=== PATIENT | male | born 1950 | race Native Hawaiian/Other Pacific Islander ===

== ENCOUNTER 2021-02-22 18:36 | Observation (INO) | payer OTHER, MEDICARE, SELFPAY ==
[2021-02-22 19:48] VITALS: BMI 34.3
[2021-02-22 20:00] VITALS: BP 158/76; PULSE 69; RESP 18; TEMP 37.3; O2SAT 97
[2021-02-22 21:22] VITALS: O2SAT 95
--- NOTE | 2021-02-22 21:24 | DI.MRI.S_ITS ---
PROCEDURE: MR STROKE Pre- and post-contrast brain MRI, non-contrast brain MR angiogram, pre- and postcontrast neck MR angiogram INDICATIONS: TIA vs CVA TECHNIQUE: Brain: Noncontrast axial T1 spin echo, axial T2 fast spin echo, sagittal and axial FLAIR, coronal T2 fast spin echo, axial gradient echo, axial diffusion and ADC through the brain. After the administration of contrast, axial 3D VIBE of the cranial vasculature and brain. Brain MRA: Non-contrast 3-D time of flight MR angiogram, with multiple wrqhpda-vedbilnxv-dwoapqtzbw (MIP) reformats performed. Neck MRA: Axial and sagittal TruFISP through the neck. Coronal dynamic MR angiogram during administration of contrast in the arterial and venous phases, with 3-dimenstional kzqfsvd-eubbngkas-iwjkwozmtc (MIP) reformats constructed from subtraction images. COMPARISON: None. FINDINGS: Image quality: Degraded by body habitus and motion artifact. BRAIN: CSF spaces: Ventricles are normal in size and shape. Basal cisterns are patent. No extra-axial fluid collections. Brain: No acute intracranial bleeds or mass effects. There is moderate diffuse cerebral volume loss. There is a mild degree of patchy high FLAIR signal within the periventricular and subcortical white matter. Moderate chronic infarct within the right anterior frontal lobe, which demonstrates a small amount of low curvilinear gradient echo signal intensity. Small chronic infarct within the right occipital lobe. Martines-white matter interface is normal. Diffusion weighted images show no acute ischemic insults. Brainstem appears normal. Normal intravascular flow voids are present. No abnormal intracranial enhancement. Skull and face: Calvarial marrow signal is normal. Orbits appear normal. Sinuses: Sinuses and mastoids are clear. BRAIN MR ANGIOGRAM: Significantly limited examination secondary to motion artifact. Flow is grossly present within the bilateral internal carotid arteries, bilateral middle and anterior cerebral arteries, as well as the bilateral posterior cerebral arteries. Normal flow seen within the right vertebral artery and basilar artery. No flow is seen within the left vertebral artery. NECK MR ANGIOGRAM: Thoracic aortic arch is widely patent with standard branching anatomy. The and nominated artery is patent. Moderate stenosis within the proximal right subclavian artery. Right subclavian artery is otherwise patent. Right vertebral artery demonstrates a high-grade focal stenosis roughly 35 mm distal to its origin which demonstrates evidence of an intimal flap, which could indicate dissection. Right common carotid artery is patent. Right external carotid artery is patent. Right internal carotid artery is patent. Left common carotid artery is patent. Left external carotid artery is patent. Multifocal moderate high-grade stenosis within the proximal left internal carotid artery are present. Left internal carotid artery is otherwise patent. Left subclavian artery is patent. Left vertebral artery is small in caliber, and is grossly patent to mid neck, and is not well seen distally. IMPRESSION: Limited examination secondary to body habitus and motion artifact. BRAIN MRI: 1. No acute process. No recent infarct. 2. Volume loss and small vessel ischemic disease. 3. Chronic right cerebral infarcts. BRAIN MR ANGIOGRAM: Limited examination demonstrating no definite flow within the left distal vertebral artery. NECK MR ANGIOGRAM: 1. No right internal carotid artery stenosis. 2. High-grade left internal carotid artery stenoses. 3. High-grade proximal right vertebral artery stenosis, possibly the result of dissection. 4. Small caliber left vertebral artery which is not well seen distally, which could be the result of dissection versus occlusion versus congenital absence of the vessel, versus small vessel caliber. Findings discussed with Dr. Mancilla on 02/23/2021 at 11:40 hours. Dictated by: Lefty Buenrostro M.D. on 02/23/2021 at 11:27 Approved by: Lefty Buenrostro M.D. on 02/23/2021 at 11:42
--- NOTE | 2021-02-22 21:25 | DI.ECHO.S_ITS ---
[facility] +---------+ : : [address] : [place] : : : : [id number] : : : : Phone: [phone]---------+ Echocardiogram Report + + :Name: CHA GUZMAN Study Date: 02/23/2021 Height: 72 in : :[facility] ReadingLocation: Weight: 253 lb : : Gender: Male BSA: 2.4 m2 : :: 1950 Age: 70 yrs BP: 158/84 mmHg: :Reason For Study: TIA : :Ordering Physician: ARNULFO, : :ALAN Performed By: Erin Wang : :Referring: ALAN ARREDONDO : + + Interpretation Summary The patient was in sinus rhythm with heart rates between 66-71 bpm during the exam. The left ventricle is normal in size. The ejection fraction is estimated to be 55-60%. Hypokinesis of mid to distal inferior lateral as well as mid to distal anterolateral wall. There is no obvious LV thrombus. The right ventricle is at the upper limits of normal in size. The right ventricular systolic function is normal. Left coronary cusp is calcified and has restricted movement. Overall no significant aortic stenosis. Mild atherosclerotic plaque(s) in the aortic arch. The IVC is of normal diameter and collapses greater than 50% with a sniff. This suggests a low right atrial pressure of 3 mm Hg. Procedure: A two-dimensional transthoracic echocardiogram with color flow and Doppler was performed. The study quality was technically difficult. Comparison is made with the echocardiogram of 08/13/2012. The patient was in sinus rhythm with heart rates between 66-71 bpm during the exam. Left Ventricle: Proximal septal thickening is noted. The left ventricle is normal in size. There is no echo evidence for significant left ventricular outflow tract obstruction. There is no thrombus. The ejection fraction is estimated to be 55-60%. Hypokinesis of mid to distal inferior lateral as well as mid to distal anterolateral wall. Diastolic parameters suggest a relaxation abnormality of the left ventricle, consistent with probable normal filling pressures. Right Ventricle: The right ventricle is at the upper limits of normal in size. The right ventricular systolic function is normal. Atria: The left atrium is mildly dilated. Right atrial size is normal. There is no Doppler evidence for an interatrial shunt. Mitral Valve: There is mild mitral annular calcification. The mitral valve leaflets are slightly calcified. There is systolic anterior motion of the chordal apparatus. Redundant elongated chordae are noted. There is trace mitral regurgitation. Aortic Valve: The aortic valve is mildly calcified. Left coronary cusp is calcified and has restricted movement. Overall no significant aortic stenosis. There is no hemodynamically significant valvular aortic stenosis. There is trace aortic regurgitation. Tricuspid Valve: The tricuspid valve is normal in structure and function. There is trace tricuspid regurgitation. Pulmonary artery pressures cannot be estimated because of the lack of a measurable TR jet velocity. Pulmonic Valve: The pulmonic valve is not well seen, but is grossly normal. There is no pulmonic valvular regurgitation. Great Vessels: The aortic root is normal size. The ascending aorta is at the upper limits of normal in size. Mild atherosclerotic plaque(s) in the aortic arch. The IVC is of normal diameter and collapses greater than 50% with a sniff. This suggests a low right atrial pressure of 3 mm Hg. Pericardium/ Pleura There is no pericardial effusion. There is no pleural effusion. MMode/2D Measurements & Calculations LVIDd: 4.6 cm LVOT diam: 2.3 cm LVIDs: 3.1 cm Ao root diam: 3.9 cm FS: 31.8 % asc Aorta Diam: 3.7 cm IVSd: 1.5 cm LVPWd: 1.1 cm LV madera. diameter/BSA (cm/m^2): 2.0 LV sys. diameter/BSA (cm/m^2): 1.3 LA A2 area: 25.9 cm2 RA long axis: 5.6 cm LA A4 area: 21.8 cm2 RA area: 17.6 cm2 LA length (vol): 5.6 cm RA vol: 46.9 ml LA vol: 84.9 ml RA : 19.9 ml/m2 LA vol index: 36.1 ml/m2 IVC diam: 1.3 cm RVD1 (basal): 4.0 cm TAPSE: 2.4 cm Doppler Measurements & Calculations Ao V2 max: 135.9 cm/sec LVOT Max Bhupendra: 124.1 cm/sec Ao V2 mean: 102.0 cm/sec LV V1 max P.2 mmHg Ao max P.4 mmHg LV V1 VTI: 28.3 cm Ao mean P.5 mmHg LEXIE(I,D): 3.8 cm2 Ao V2 VTI: 31.6 cm LEXIE(V,D): 3.8 cm2 sev ratio: 0.90 LEXIE indexed to BSA (cm^2/m^2): 1.6 MV E max bhupendra: 64.0 cm/sec PA V2 max: 92.8 cm/sec MV A max bhupendra: 95.0 cm/sec PA V2 mean: 63.1 cm/sec MV E/A: 0.67 PA mean P.8 mmHg Med Peak E' Bhupendra: 4.8 cm/sec PA pr(Accel): 24.2 mmHg E/E' med: 13.4 Lat Peak E' Bhupendra: 7.2 cm/sec E/E' lat: 8.9 E/e' average: 11.1 MV dec time: 0.30 sec SV(LVOT): 119.0 ml Reading Physician:09:35 AM
--- NOTE | 2021-02-22 21:56 | PM.HP.1 ---
History of Present Illness History of Present Illness Date Patient Seen: 02/22/21 Time Patient Seen: 21:30 Chief complaint: TIA Narrative: Mr. Sherman is a 70M with PMH CVA, trigeminal neuralgia, HTN, right carotid endarterectomy who presented to the hospital for sudden onset word finding difficulties. He states he was watching TV and approximately at 3PM today he was noted to be unable to speak normally. He had slightly slurred speech, and he had notable word finding difficulty. The episode lasted for 10-15 minutes. He did not have any vision changes, no numbness or other sensory changes. No headaches. No weakness. No shortness of breath or chest pain. No nausea, vomiting, diarrhea. He presented initially to [facility]. Labs notable for WBC 4.7, hgb 14.6, plts 13. Na 136, creatinine 1.59 (baseline 1.55 last in 2019), troponin negative. CT head showed no acute process and old infarcts at right frontal and occipital lobes. 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 Stenosis of right cervical vertebral artery, hypoplasia of left vertebral artery. He was transferred for further treatment. Family history: Father - CAD Social history: former smoker, quit years ago. EtOH use daily Patient History Family & Social History Social History: household members spouse Prior Living Arrangements Mobile home Safety & Behavioral: Feels Safe in Current Yes Environment Been Physically Hurt or No Threatened By a Person Suicidal Ideation Description None Suicide Plan Description No Plan Tobacco & Substance use: Smoking Status Former smoker alcohol intake current alcohol intake frequency 3 or more drinks per day Meds Home Medications and Allergies Allergies Allergy/AdvReac Type Severity Reaction Status Date / Time INGREDIENT: NDA - NO KNOWN Allergy Unknown Uncoded 07/04/17 11:59 DRUG ALLERGIES Review of Systems Review of Systems Narrative: 14 systems reviewed and negative aside from what is noted in HPI Exam Narrative Exam Narrative: GEN: no acute distress HEENT: PERRL, moist mucous membranes NECK: trachea midline, no JVD PULM: clear bilaterally, no wheezes, rhonchi, rales CV: regular rate and rhythm, no murmurs ABD: soft, nontender, nondistended, no organomegaly, normal bowel sounds EXT: warm and well perfused, chronic venous stasis changes NEURO: awake, alert, and oriented, speech fluent, no facial droop, cranial nerves 2-12 intact, upper and lower extremities 5/5 strength PSYCH: pleasant, cooperative Assessment & Plan Assessment & Plan narrative: Mr. Sherman is a 70M with PMH CVA, trigeminal neuralgia, HTN, right carotid endarterectomy who presented to sudden onset word finding difficulties and slurred speech 1. Probable TIA with history of R carotid endarterectomy, R chronic stable vertebral artery dissection, R vertebral artery stenosis, L vertebral aretery hypoplasia -he is high risk for having another neurologic event given his intracranial vascular anattomy -had now resolved neurologic dysfunction consistent with TIA vs CVA -CT head and CTA head/neck with no acute process -MRI head ordered, ECHO ordered -lipids, a1c ordered -hold anti-hypertensives to allow permissive hypertension -already on aspirin, for now will add plavix as well -NIH q4 -PT/OT/speech ordered 2. Hypertension -hold anti-hypertensives, except will continue metoprolol for now CODE: DNR Proxy: Eddie Sherman, spouse I have utilized all available resources to reconcile patient's home medications. Time Spent With Patient Critical Care time: I spent a total of [] minutes of critical care time on this patient's care today; this time is exclusive of procedural time. Quality VTE Deep Vein Thrombosis/Pulmonary Embolism Present on Admission: No MIPS - Admit I confirm the patient?s Advance Care Plan is present, Code status is documented, Surrogate decision maker is in patient?s record [If Yes, STOP here]: Yes
[2021-02-22] MEDS: METOPROLOL IR 50 MG TABLET PO (22:01)
[2021-02-22 22:56] LABS: COVID19 - ADMIT (NP swab/PCR) Negative (Negative)
[2021-02-23] VITALS: BP 158/84; PULSE 67; RESP 18; TEMP 37.5; O2SAT 95
[2021-02-23 01:22] VITALS: O2SAT 91
[2021-02-23 05:00] VITALS: BP 144/62; PULSE 80; RESP 18; TEMP 37.5; O2SAT 91; O2SAT 97
[2021-02-23 05:50] LABS: Hematocrit 43.3 % (41-53); Hemoglobin 14.8 g/dL (13.5-17.5); Mean Corpuscular HGB Conc 34.2 % (30-36); Mean Corpuscular Hemoglobin 31.2 PG (26-34); Mean Corpuscular Volume 91.5 fL (80-100); Platelet Count 104 X10^3/uL (150-400); Red Blood Cell Count 4.73 X10^6/uL (4.5-5.9); White Blood Cell Count 3.7 X10^3/uL (4.5-11.0)
[2021-02-23 06:01] LABS: Add Manual Diff / Slide Review YES
[2021-02-23 06:10] LABS: BUN Creatinine Ratio 14.4 (6-22); Blood Urea Nitrogen 18 mg/dL (9-20); Calcium 8.8 mg/dL (8.4-10.2); Carbon Dioxide 28 mmol/L (22-32); Chloride 102 mmol/L (98-107); Cholesterol 190 mg/dL (140-199); Estimated Glomerular Filt Rate 57.3 mL/min (>60); Glucose 94 mg/dL (80-110); HDL Cholesterol 29 mg/dL (40-60); HEMOLYSIS < 15 (0-50); LDL Cholesterol Calculated 129 mg/dL (<100); Potassium 4.2 mmol/L (3.4-5.1); Sodium 134 mmol/L (137-145); Triglycerides 158 mg/dL (35-150)
[2021-02-23 06:16] LABS: Neutrophils Absolute Manual 1813 /uL (3000-5900); Total Cells Counted 100
[2021-02-23] MEDS: ASPIRIN EC 81 MG TABLET PO (08:09)
[2021-02-23] MEDS: CLOPIDOGREL 75 MG TABLET PO (08:09)
[2021-02-23] MEDS: ENOXAPARIN 30 MG/0.3 ML SYRINGE SUBCUT (08:10)
[2021-02-23] MEDS: METOPROLOL IR 50 MG TABLET PO (08:11)
[2021-02-23 08:23] VITALS: O2SAT 96
[2021-02-23 08:30] VITALS: BP 106/55; PULSE 74; RESP 18; TEMP 36.7; O2SAT 99
--- NOTE | 2021-02-23 09:20 | PT.IIE ---
Physical Therapy Inpatient Evaluation/Re-Eval M1 PT/OT-IP Prior Functional Status Start: 02/23/21 11:51 Freq: NEEDED Status: Active Protocol: Document 02/23/21 09:20 AB (Rec: 02/23/21 12:14 AB [email or web address]) Medical Review Prior Functional Status Medical History Reviewed Yes Communication able to make needs known Mobility and Gait pt stated that he is independent with all mobilities and ambulation without AD Social History Household Members spouse Living Arrangements House Number of Floors (Floors) One Floor Number of Stairs To Enter/Railing? 4 platform steps without rails to enter the house Home Environment Standard Height Toilet,Walk in Shower,Built-In Shower Seat Home Equipment Straight Cane M2 PT-IP Current Condition Start: 02/23/21 11:51 Freq: NEEDED Status: Active Protocol: Document 02/23/21 09:20 AB (Rec: 02/23/21 12:14 AB [email or web address]) Physical Therapy Current Condition Current Condition Evaluation Date 02/23/21 Treatment Diagnosis TIA; difficulty in walking Onset Date 02/22/21 M3 PT-IP Subjective Start: 02/23/21 11:51 Freq: NEEDED Status: Active Protocol: Document 02/23/21 09:20 AB (Rec: 02/23/21 12:14 AB [email or web address]) Subjective Physical Therapy Visit Type Type Initial Evaluation Visit Start Time 09:20 Visit Stop Time 10:00 Total Visit Minutes 40 Number of EXTRUSION BENDER Visits 0 Physical Therapy Visit Comments Patient Comments agreed to do PT M4 PT-IP Mobility and Gait Start: 02/23/21 11:51 Freq: NEEDED Status: Active Protocol: Document 02/23/21 09:20 AB (Rec: 02/23/21 12:14 AB [email or web address]) PT-Bed Mobility Assessment Supine to Sit Supine to Sit Maximum Assistance,1 Person Assistance PT-Transfer Assessment Sit to and From Stand Sit to and from Stand Contact Guard Assistance,1 Person Assistance Equipment Transfer Assistive Device None,Gait Belt,Straight Cane Orthotic/Prosthetic Devices or Brace: No Transfers Transfer Destination Chair Transfer Technique ambulated Transfer Ability Level of Assist Standby Assistance,Contact Guard Assistance,Use of Upper Extremities Comments Mobility Comments Pt completed supine to sit max A and max cues. pt stated that he has back problems but does not have any problems getting up from his bed at home. pt was able to sit on EOB SBA. Completed sit to stand CGA and ambulated in room without AD CGA. presents with antalgic shuffling gait with increas forward trunk flexion. pt and spouse stated that gait is at prior level. pt ambulated out in the hallway and completed up/down platform set CGA for ascending and min A for descending with pt taking extra steps forward upon descent due to decrease balance. pt ambulated back to his room. educated pt on balance and LE control. spouse stated that pt has been seeing a interpersonal communications professor for his strength and balance and that pt had h/o CVA ~ 2 years ago. Assessed mobility using SPC. pt able to ambulated ~ 40 ft using SPC SBA and with improve LE elevation and posture. completed up/down platform step using SPC and completed CGA. pt ambulated back to his room using SPC SBA to CGA. rested on EOB. spouse stated that pt has L sided neglect and asked regarding pt holding on SPC on L side to improve L sided neglect. informed spouse that pt does not seem to have much L sided neglect but may be inattentive sometimes when distracted or multi tasking. Pt able to turn head and look at PT on L side without cues provided. informed spouse that pt's LE are equal strength bower and pt is R handed that is why it is easier for pt to use SPC on R hand. also informed spouse that walking takes a lot more balance and coordination and using SPC on L side may be a safety issue during walking since spouse is stating that pt has L sided neglect. informed spouse that pt can do other activities to begin with to encourage L sided attentiveness for now but not risking pt to fall. Pt agreed to use SPC. pt ambulated from bed to chair without AD sBA. positioned pt on chair. call light and table placed within reach. Gait Assessment Gait Gait Assistance Required: Standby Assistance,Contact Guard Assist Distance (Feet) 40 Able to Maintain Weight Bearing Status Yes During Gait Assistive Devices Assistive Device None,Gait Belt,Straight Cane Orthotic/Prosthetic Devices or Brace: Yes Gait Deviations General Gait Pattern Antalgic,Decreased Stride Length,Decreased Feet Clearance,Flexed Trunk,Wide Based Gait Factors Limiting Gait Function Factors Limiting Gait Function Decreased Activity Tolerance, Decreased Strength,Limited Range of Motion,Poor Balance, Poor Safety Awareness Stair Climbing Assessment Evaluation Level of Assist On Stairs Contact Guard Assistance, Minimal Assistance Devices Stair Climbing Assistive Devices None,Straight Cane Technique/Endurance Stair Climbing Direction Ascend and Descend Stair Climbing Technique Step to Step Number of Steps Climbed 1 Query Text: Stair Climbing Set # Repetitions (reps) 4 Comments Stair Climbing Comments pls refer to mobility section for details PT-Balance Assessment Sitting Balance and Reactions Static Sitting Balance Ability Good Dynamic Sitting Balance Ability Good Standing Balance and Reactions Static Standing Balance Ability Fair Dynamic Standing Balance Ability Fair Device Used without AD M5 PT-IP Objective Assessments Start: 02/23/21 11:51 Freq: NEEDED Status: Active Protocol: Document 02/23/21 09:20 AB (Rec: 02/23/21 12:14 AB [email or web address]) Orientation Orientation/Cognition Level of Alertness Alert Orientation Name,Place,Situation Language Function Ability No Deficits Noted Safety Awareness Decreased Safety Awareness Memory Description No Deficits Noted Gross Range of Motion Lower Extremity ROM Assessment Within Functional Limits Strength Lower Extremity Strength Assessment Within Functional Limits Sensation Assessment Sensation Gross Sensation WNL Muscle Tone Muscle Tone WNL Yes M6 PT-IP Treatment Start: 02/23/21 11:51 Freq: NEEDED Status: Active Protocol: Document 02/23/21 09:20 AB (Rec: 02/23/21 12:14 AB [id number]) Physical Therapy Treatment Education Education Provided Safety M7 PT-IP Assessment and Plan Start: 02/23/21 11:51 Freq: NEEDED Status: Active Protocol: Document 02/23/21 09:20 AB (Rec: 02/23/21 12:14 AB [id number]) PT Summary Assessment and Plan Potential Rehabilitation Potential Good Status of Condition at Evaluation Stable Summary Impairments Pain,ROM,Strength,Balance, Coordination,Sensation,Tone, Cognition,Bed Mobility, Transfers,Gait,Activity Tolerance Assessment Summary pt requiring SBA to CGA with mobility and plans to go home with spouse to assist him. pt will benefit from outpt PT. Goals Bed Mobility Goal Independent Transfer Goal Independent Gait Goal Independent Gait Distance 200 Other Goals up/down 4 platform steps without AD SBA Days to Meet Goals 5 Frequency of Treatment Frequency Of Treatment Once a Day Treatment Plan Physical Therapy Treatment Plan Bed Mobility Training,Transfer Training,Gait Training, Therapeutic Exercise,Balance Retraining,Discharge Planning, Hot or Cold Pack,Neuromuscular Re-ed,Coordination Retraining ,Manual Therapy Recommendations To Nursing Amount of Assist Needed 1 Person Assist Discharge Recommendations PT Discharge Recommendations Home with Assistance, Outpatient PT Transportation Needs at Discharge Private Vehicle
--- NOTE | 2021-02-23 10:13 | ST.IPSCREEN ---
saw pt in his room seated in bedside chair. Pt's in the room. Both pt and his report that pt's speech and swallowing are back to normal OME screen with DKS was observed to be WFL. Mild dysarthria noted; pt's indicated that dysarthria was residual from his last stroke. Pt oriented x3, able to describe incident yesterday. Swallow observed to be WFL. No cough observed. No ST indicated at this time.
[2021-02-23] MEDS: LORazepam 2 MG/ML INJ 1 MG IV (10:15)
--- NOTE | 2021-02-23 11:33 | PC.NURSE ---
Day shift: Pt back on AC unit from MRI at approx 1130. He is in bed w/ bed alarm on. Placed back on tele as well. Call light in reach.
[2021-02-23 12:08] VITALS: O2SAT 95
--- NOTE | 2021-02-23 12:20 | PC.NURSE ---
Day shift: Pt has been affected by the IV Ativan given prior to the MRI. Unsteady gait and mild confusion. Unable to get out of chair on his own. Dr Mancilla aware. Pt in chair for lunch. Will reassess Pts ability to ambulate prior to d/c home. Call light in reach.
--- NOTE | 2021-02-23 13:50 | OT.IP.EVAL ---
Occupational Therapy Inpatient Evaluation/Re-Eval M1 PT/OT-IP Prior Functional Status Start: 02/23/21 11:51 Freq: NEEDED Status: Active Protocol: Document 02/23/21 13:51 [facility] (Rec: 02/23/21 14:10 [facility] [id number]) Medical Review Prior Functional Status Medical History Reviewed Yes Communication able to make needs known Mobility and Gait pt stated that he is independent with all mobilities and ambulation without AD Activities of Daily Living and IADL's Pt states able to do all his ADL needs and uses a tile power shear operator at times to assist. Social History Household Members spouse Living Arrangements House Number of Floors (Floors) One Floor Number of Stairs To Enter/Railing? 4 platform steps without rails to enter the house Home Environment Standard Height Toilet,Walk in Shower,Built-In Shower Seat Home Equipment Straight Cane Additional Social History Comment Pt has had prior history of CVA. M2 OT-IP Current Condition Start: 02/23/21 13:51 Freq: Status: Active Protocol: Document 02/23/21 13:51 [facility] (Rec: 02/23/21 14:10 [facility] [id number]) Occupational Therapy Current Condition Current Condition Evaluation Date 02/23/21 Treatment Diagnosis TIA Diagnosis Onset Date 02/22/21 M3 OT- IP Subjective and Pain Start: 02/23/21 13:51 Freq: Status: Active Protocol: Document 02/23/21 13:51 [facility] (Rec: 02/23/21 14:10 [facility] [id number]) OT- Subjective Occupational Therapy Visit Type Type Initial Evaluation Visit Start Time 12:15 Visit Stop Time 13:50 Total Visit Minutes 40 Notes Pt seen for split treatment [id number], and 0401-0617 Occupational Therapy Visit Comments Patient Comments Pt agreed to do OT eval. Patient/Caregiver Goals To go home. OT Pain Assessment Pain When Pain Assessed At Rest Pain Present Pain Present Denied Pain M4 OT- IP ADL's Start: 02/23/21 13:51 Freq: Status: Active Protocol: Document 02/23/21 13:51 [facility] (Rec: 02/23/21 14:10 [facility] [id number]) OT ADO-Swsd-Npvyexq Comments OT Self-Feeding Comments Not at meal time. OT ADL-Grooming General Evaluation Grooming Ability Standby Assistance Areas Needing Assistance Retrieving/Set-up of Grooming Items Comments OT Grooming Comments Pt able to stand at the sink in order to do grooming needs. Assist to open packaging on the toothbrush. OT ADL-Oral Care General Eval Oral Care Ability Independent OT ADL-Dressing Comments OT Dressing Comments Pt states does not wear socks at home. Pt able to pull down his brief to urinate while standing to the toilet. OT ADL-Toileting General Evaluation Toileting Ability Standby Assistance Comments OT Toileting Comments Pt able to stand to urinate with distant SBA. OT ADL-Bathing Comments OT Bathing Comments Not performed. M5 OT- IP IADL's Start: 02/23/21 13:51 Freq: Status: Active Protocol: Document 02/23/21 13:51 [facility] (Rec: 02/23/21 14:10 [facility] [id number]) OT-Instrumental Activities of Daily Living Home Safety Awareness Awareness of Need for Assistance at Home Decreased Awareness Home Safety Comments At this time pt is slow to problem solve and process, would be best for his to assist or provide supervision for all needs. Money Management Money Management Caregiver Provides Assistance Meal Preparation Meal Preparation Caregiver Provides Assist M6 OT- IP Functional Cognition Start: 02/23/21 13:51 Freq: Status: Active Protocol: Document 02/23/21 13:51 [facility] (Rec: 02/23/21 14:10 [facility] [id number]) Cognitive Factors Limiting Selfcare Function Cognitive Ability Level of Alertness Alert Patient Orientation Name,Place,Situation Attention Span Ability Capable of Focused Attention, Capable of Sustained Attention Memory Description Short Term Impaired Cognitive Comments Cognitive Assessment Comments Pt having trouble to read the clock and follow directions for [place] [employer] at this time. Pt however able to follow directions to do grooming and toileting needs. NO sure if pt is at his baseline for cognitive needs as pt states prior has had CVA and that his tells him what to do all the time. OT- Vision and Hearing OT- Hearing Assessment OT- Hearing Assessment Use of Hearing Aids OT- Vision Assessment Vision Assessment Comments Pt has reading glasses but not in the hospital. M7 OT- IP Mobility and Balance Start: 02/23/21 13:51 Freq: Status: Active Protocol: Document 02/23/21 13:51 [facility] (Rec: 02/23/21 14:10 [facility] [id number]) OT- Bed Mobility Assessment Supine to Sit Supine to Sit Assist Moderate Assistance Sit to Supine Sit to Supine Assist Standby Assistance OT-Transfer Assessment Sit to and From Stand Sit to and from Stand Minimal Assistance Transfers Transfer Ability Standby Assistance,Contact Guard Assistance Technique Transfer Destination Bed,Chair Transfer Technique Stand Step Pivot Devices Transfer Assistive Devices None,Gait Belt,Front Wheeled Walker Comments Mobility Comments Pt has difficulty to coordinate his movement to scoot and weight shift in the bed to get to the edge of the bed. Pt heavily pushing down on the FWW to stand and wanting therapist to hold the FWW in place while coming to stand. Once on his feet with FWW SBA, mainly vc to keep the FWW in front of him. THen able to try without the FWW and pt able to walk with close SBA. OT- Gait Assessment Comments Gait Ability Comments At this time would be best for pt to use a device outside on uneven surfaces such as a FWW . Pt states uses a SPC on occasion, not able to assess with pt. OT- Balance Assessment Sitting Balance and Reactions Static Sitting Balance Ability Good Dynamic Sitting Balance Ability Fair Standing Balance and Reactions Static Standing Balance Ability Fair M8 OT- IP Objective Assessments Start: 02/23/21 13:51 Freq: Status: Active Protocol: Document 02/23/21 13:51 [facility] (Rec: 02/23/21 14:10 [facility] [id number]) OT Gross Range of Motion Upper Extremity Range of Motion ROM Impairments grossly WFL. OT Strength Upper Extremity Strength Assessment Left Impaired Comments Strength Comments LUE 4-/5 OT- Coordination Assessment Upper Extremity Finger to Nose Test Left UE Impaired Comments Coordination Comments Pt needing assist to open packaging for items. OT-Muscle Tone Assessment Muscle Tone WNL Yes OT Sensation Assessment Comments Summary Comments Intact for light touch. Decreased proprioception and kinesthesia for left arm. Edema Edema Comments Left LE more swollen than right LE. M9 OT- IP Assessment and Plan Start: 02/23/21 13:51 Freq: Status: Active Protocol: Document 02/23/21 13:51 [facility] (Rec: 02/23/21 14:10 [facility] [id number]) OT Summary Assessment and Plan Potential Rehabilitation Potential Good Analytic Complexity at Evaluation Moderate Summary OT Impairments Strength,Balance,Coordination, Functional Cognition, Functional Mobility,Dressing, Toileting,Bathing,Toilet Transfers,Shower Transfers, Activity Tolerance Progress Towards Goals Slow Progress due to Medical Issues,Slow Progress due to Cognition Assessment Summary Pt MOD complexity with TIA and prior history of CVA. Pt's not present in the room but pt states she is able to assist him as needed. Pending or prior level of function, pt would benefit from outpt therapy. Pt having difficulty with bed mobility, dynamic balance, coordination and problem solving needs. Goals Grooming Goal Independent Dressing Goal Independent Toileting Goal Independent Bathing Goal Independent Toilet Transfer Goal Independent Shower Transfer Goal Independent Days to Meet Goals 10 Frequency of Treatment Frequency Of Treatment Once a Day Treatment Plan OT Treatment Plan ADL Training,Functional Cognition Training,Functional Mobility,Patient/Family Education,Discharge Planning Other Treatment Recommendations and Next shower Treatment Focus Discharge Recommendations OT Discharge Recommendations Home with 24/7 Assist Available,Outpatient PT Transportation Needs at Discharge Private Vehicle
--- NOTE | 2021-02-23 14:36 | CM.IDA ---
Addendum entered by EDUARD Regalado 02/23/21 14:48: ADD: According to RN, spouse agreeable to taking patient home this afternoon, patient remains unsteady on feet JODI Original Note: Discharge Planning/Care Management CM Discharge Assessment Start: 02/23/21 14:28 Freq: Status: Active Protocol: Document 02/23/21 14:28 [facility] (Rec: 02/23/21 14:36 [facility] [id number]) Discharge Planning Assessment Assigned Chemist Physical EDUARD Mazariegos DPOA/Assigned Designee Name Eddie Sherman, spouse Contact Information [phone], cell Advance Directives? No History Provided By Patient,Medical Record Comment Patient admitted observation for stroke r/o. Suspected TIA Prior Living Arrangements House Household Members spouse Type of transporation used prior to Drives own vehicle admit Independent with ADL's Yes Is patient alert and oriented? Yes Barriers to Discharge No Comment Patient received ativan in order to tolerate his MRI and now has some unsteady gait w/ confusion. Dr Mancilla aware and nursing planning to reassess gait before patient returns home w/spouse Therapy team recommending home w/outpatient PT/OT Discharge Plan Home Transportation Arrangement Family Referrals Initiated None needed EDUARD Conteh
--- NOTE | 2021-02-23 15:31 | PC.NURSE ---
Day shift: Paperwork signed and all questions answered. Pt has all personal belongings. scripts sent to Pt's pharmacy. Pt's spouse in room for teachings. Pt OOB and ambualted around [facility] and tolerated well. Pt continues to have no nausea or pain. ALso no chest pain. Taken to car in by MARK Hess. Pt's spouse is driving him home. Left unit at approx 1530.
--- NOTE | 2021-02-25 19:47 | P.DS_ITS ---
History of Present Illness History of Present Illness Date Patient Seen: 02/23/21 Chief complaint: TIA Narrative: Mr. Sherman is a 70M with PMH CVA, trigeminal neuralgia, HTN, right carotid endarterectomy who presented to the hospital for sudden onset word finding difficulties. He states he was watching TV and approximately at 3PM today he was noted to be unable to speak normally. He had slightly slurred speech, and he had notable word finding difficulty. The episode lasted for 10-15 minutes. He did not have any vision changes, no numbness or other sensory changes. No headaches. No weakness. No shortness of breath or chest pain. No nausea, vomiting, diarrhea. He presented initially to [facility]. Labs notable for WBC 4.7, hgb 14.6, plts 13. Na 136, creatinine 1.59 (baseline 1.55 last in 2019), troponin negative. CT head showed no acute process and old infarcts at right frontal and occipital lobes. 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 Stenosis of right cervical vertebral artery, hypoplasia of left vertebral artery. He was transferred for further treatment. Discharge Providers Provider Date of admission: 02/22/21 18:36 Discharge Date: 02/23/21 Consults: 02/22/21 21:24 Consult to Discharge Planning Routine Comment: Consult to Occupational Therapy Evaluate & Treat Comment: Physician Instructions: Evaluate and treat Consult to Physical Therapy Evaluate & Treat Comment: Physician Instructions: Evaluate and Treat Consult to Speech Therapy Evaluate & Treat Comment: Physician Instructions: Evaluate and treat Discharge provider: Nesha Mancilla MD Summary Hospital Course Discharge Diagnosis: 1. TIA 2. Hypertension 3. Trigeminal neuralgia 4. Prior history of stroke Hospital Course: The patient is a 70-year-old male who was admitted to the hospital for probable TIA. Patient had sudden onset of word-finding difficulties. He had slight slurring of his speech. This lasted for 10-15 minutes then resolved. He presen gabino to [facility]. Head CT there was negative. CTA showed no acute findings although postoperative changes of a right CEA, left carotid stenosis, small right vertebral artery dissection unchanged from previously. Patient underwent echocardiogram which revealed an ejection fraction of 50-55%. There was hypokinesis of the mid to distal inferior lateral wall as well as the mid to distal anterior lateral wall. There was no obvious LV thrombus. The right ventricle was at the upper limits of normal. There was normal right ventricular systolic function. Patient had a brain MRI and MRA. Findings are as follows, RAIN MRI:? 1. No acute process.? No recent infarct. 2. Volume loss and small vessel ischemic disease. 3. Chronic right cerebral infarcts.? ? BRAIN MR ANGIOGRAM:? Limited examination demonstrating no definite flow within the left distal vertebral artery. ? NECK MR ANGIOGRAM:? 1. No right internal carotid artery stenosis. 2. High-grade left internal carotid artery stenoses. 3. High-grade proximal right vertebral artery stenosis, possibly the result of dissection. 4. Small caliber left vertebral artery which is not well seen distally, which could be the result of dissection versus occlusion versus congenital absence of the vessel, versus small vessel caliber.? Patient had complete resolution of his symptoms and was deemed appropriate for discharge home. As the patient was previously on 81 mg of aspirin and had a acute ischemic event his aspirin was increased to 325 per day. He will remain on his atorvastatin 80 mg daily in addition to metoprolol 50 p.o. b.i.d. Status at Discharge Cognitive/behavioral status at discharge: oriented Functional status at discharge: independent ambulation Overall status at discharge: patient is progressing back to baseline Exam Vital Signs (past 8 hours): Oxygen Delivery Method Room Air Oxygen Flow Rate 0 Narrative Exam Narrative: Pleasant male in no acute distress Resp Other: Lungs clear to auscultation Cardio Other: Cardiac exam: Regular rate and rhythm normal S1-S2 GI Other: Abdomen soft and nontender Objective Labs Result Diagrams: 02/23/21 05:22 02/23/21 05:22 [facility] Social History household members: spouse Smoking Status: Former smoker alcohol intake: current Discharge Assessment & Plan Assessment and Plan Assessment: 1. TIA 2. Hyper lipid 3. Hypertension Plan of Treatment: Discharge home Increase aspirin to 325 daily Discharge Plan Discharge Plan Patient Disposition: Home Discharge orders & Medications Prescriptions: New atorvastatin [Lipitor] 20 mg Tablet 80 mg PO BEDTIME Qty: 30 0RF metoprolol tartrate 50 mg Tablet 50 mg PO BID Qty: 30 0RF aspirin 325 mg tablet 325 mg PO DAILY Qty: 30 0RF Discharge Health Status Multidrug resistant organism: No MDRO Diet/Activity/Treatments Diet: Low-sodium and Low-cholesterol Activity: as tolerated Visit Report/Discharge Packet Instructions: Transient Ischemic Attack, Echocardiogram, DI for Transient Ischemic Attack, How to Prevent Falls Discharge Data Attending Provider: Nesha Mancilla VTE Deep Vein Thrombosis/Pulmonary Embolism Present on Admission: No
== END 2021-02-23 15:34 | disposition home or self-care (01) ==
PROVIDERS: Internal Medicine; Admitting Provider Internal Medicine; Referring Provider Internal Medicine; Visit Provider Internal Medicine
DX: R47.1 Dysarthria and anarthria (principal); G50.0 Trigeminal neuralgia; Z86.73 Personal history of transient ischemic attack (TIA), and cerebral infarction without residual deficits; I10 Essential (primary) hypertension; Z20.822 Contact with and (suspected) exposure to COVID-19
CPT/HCPCS: 36415; 70548; 70553; 80048; 80061; 83036; 85007; 85025; 87635; 93005; 93306; 96372; 96374; 96375; 97116; 97161; 97166; C9803; G0378; G0379; J1650; J2060

== ENCOUNTER 2021-10-16 13:48 | Observation (INO) | payer MEDICARE, OTHER, SELFPAY ==
[2021-10-16] VITALS (15 sets, daily range): BP systolic 96–177; BP diastolic 51–81; PULSE 57–70; RESP 12–24; TEMP 36.3–37.1; O2SAT 97–100; BMI 33.6
--- NOTE | 2021-10-16 13:56 | DI.CT.S_ITS ---
PROCEDURE: CT STROKE INDICATIONS: left visual change and severe confusion TECHNIQUE: Noncontrast 4.5 mm thick angled axial sections acquired from the foramen magnum to the vertex, with coronal reformats. For radiation dose reduction, the following was used: automated exposure control, adjustment of mA and/or kV according to patient size. COMPARISON: [facility], MR, STROKE PROTOCOL (PNL), 08/12/2012, 14:40. [facility], MR, MR STROKE, 02/23/2021, 10:25. [facility], CT, CT HEAD WITHOUT CONTRAST, 09/09/2021, 13:31. FINDINGS: Image quality: Excellent. CSF spaces: Basal cisterns are patent. No extra-axial fluid collections. The ventricles are symmetric in size and shape. Brain: No intracranial bleeds or masses. There is cerebral volume loss for age, with resultant ventricular and sulcal prominence. There are periventricular and deep white matter chronic small vessel ischemic changes. Remote areas of infarction can be seen on the right, particularly involving the anterior superior right frontal lobe. Potential minimal low-density can be seen involving the right occipital lobe compared left. There is intracranial internal carotid artery atherosclerosis. Skull and face: Right posterior fossa craniotomy changes are seen laterally. Calvarium and visualized facial bones appear intact, without suspicious lesions. Sinuses: Visualized sinuses and mastoids are clear. IMPRESSION: No acute intracranial hemorrhage is seen. Age remote right-sided infarctions are seen, with the most prominent seen involving the anterior superior right lobe. Potential minimal asymmetric low density involving the right occipital lobe, which may simply be artifactual. Craniotomy changes are seen involving the posterior fossa on the right laterally. Note: Case discussed by telephone with Dr. Simeon at 1:09 p.m. [place] time on October 16, 2021. This study fulfills neurological imaging criteria for inclusion or exclusion of acute stroke therapies based on available published neurological guidelines. Dictated by: Karl Ford M.D. on 10/16/2021 at 13:07 Approved by: Karl Ford M.D. on 10/16/2021 at 13:10
--- NOTE | 2021-10-16 13:56 | DI.CT.S_ITS ---
PROCEDURE: CT ANGIO HEAD AND NECK INDICATIONS: left visula change and severe confuison TECHNIQUE: After the administration of intravenous contrast, 1 mm thick sections acquired from the aortic arch through the [place] of [place]. Post-contrast 4.5 mm thick sections then re-acquired from the foramen magnum to the vertex. 3-dimensional sulogzu-bfdioyskh-emsltsoemo (MIP) and/or volume rendering reformats were acquired of the central intracranial vasculature and neck separately. For radiation dose reduction, the following was used: automated exposure control, adjustment of mA and/or kV according to patient size. COMPARISON: [facility], MR, MR STROKE, 02/23/2021, 10:25. [facility], CT, CT HEAD WITHOUT CONTRAST, 09/09/2021, 13:31. FINDINGS: Image quality: Excellent. BRAIN: CSF spaces: Ventricles are normal in size and shape. Basal cisterns are patent. No extra-axial fluid collections. Brain: No midline shift. No intracranial bleeds or masses. Martines-white matter interface appears intact. There are several areas of volume loss and martines-white matter differentiation loss in the right frontal, right parietal, trace right occipital region superimposed on mild patchy white matter hypodensity. No abnormal enhancing mass. Skull and face: Postsurgical changes along the right posterior fossa. No acute fractures or suspicious bone lesions. Sinuses: Sinuses and mastoids are clear. HEAD CT ANGIOGRAPHY: Anterior circulation: Intracranial internal carotid arteries are normal in size and flow. The flow within the paired anterior cerebral arteries is normal and symmetric. The flow within the middle cerebral arteries is normal and symmetric. The anterior communicating artery is seen. No aneurysms are seen. Posterior circulation: Left vertebral artery is quite diminutive and not completely seen as it enters the foramen magnum. The right vertebral artery forms the basilar artery. Flow within the posterior cerebral arteries is normal and symmetric. No aneurysms are seen. NECK CT ANGIOGRAPHY: Carotid system: The great vessels demonstrate a conventional anatomy as they arise from the aortic arch. The origins of the common carotid arteries appear patent. The common carotid arteries demonstrate normal caliber and courses. Calcified focal stenosis of the proximal left internal carotid artery. The extent is similar compared to prior MRI. Additionally, there is very short segment focal narrowing estimated to be about 50%. The internal carotid arteries demonstrate normal calibers and courses. Posterior circulation: Left vertebral artery is quite diminutive. The origin appears patent. There is irregularity in the proximal right vertebral artery lumen, potentially atherosclerotic versus dissection. The distal right vertebral artery appears normal. There is multifocal calcification within the intracranial portion. Soft tissues: Visualized neck soft tissues demonstrate no suspicious abnormalities. Bones: No suspicious bony lesions. Visualized cervical spine appears normally aligned. IMPRESSION: 1. No acute intracranial arterial occlusions or aneurysms. 2. Intraluminal irregularity at the proximal right vertebral artery in the neck, similar compared to prior MR angiogram. Atherosclerotic plaque versus short segment dissection. 3. Extremely diminutive left vertebral artery, probably congenital. 4. 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 5. No acute changes in the brain. Any quantitative measurements of stenosis were performed using NASCET criteria. Dictated by: Samantha Zepeda M.D. on 10/16/2021 at 14:35 Approved by: Samantha Zepeda M.D. on 10/16/2021 at 14:57
--- NOTE | 2021-10-16 14:02 | ED.NEUROSD ---
HPI - Neuro Symptoms/Deficit General Chief Complaint: Altered Mental Status Stated Complaint: Possible Stroke Time Seen by Provider: 10/16/21 13:56 History of Present Illness HPI Narrative: Patient is a 70-year-old male with history of CVA,R carotid endarterectomy, R chronic stable vertebral artery dissection, R vertebral artery stenosis, L vertebral aretery hypoplasia, presenting today with visual deficits and increased confusion. He previously did have stroke. His states that he has had a couple. She thinks the last 1 was September 09 she thinks it went test [place]. She says today his last known well was 115 she was talking to him and noticed he had confusion and was having trouble seeing and grabbing things. He currently has left-sided facial droop and has some left visual defects. Related Data Previous Rx's Medication Instructions Recorded aspirin 325 mg tablet 325 mg PO DAILY #30 tabs 02/23/21 atorvastatin 20 mg tablet (Lipitor) 80 mg PO BEDTIME #30 tabs 02/23/21 metoprolol tartrate 50 mg tablet 50 mg PO BID #30 tabs 02/23/21 Allergies Allergy/AdvReac Type Severity Reaction Status Date / Time No Known Drug Allergies Allergy Verified 10/16/21 14:04 Review of Systems Review of Systems Narrative: GENERAL: Denies chills, fatigue, malaise, fever, sweats, travel HEENT: Denies sinus pain, ear pain, sore throat, difficulty swallowing, neck pain RESPIRATORY: Denies dyspnea, cough, wheezing, hemoptysis, sputum. CARDIOVASCULAR: Denies chest pain, palpitations, orthopnea, edema GASTROINTESTINAL: Denies nausea, vomiting, abdominal pain, diarrhea, constipation, melena. : Denies dysuria, frequency, incontinence, hematuria, urinary retention, flank pain. MUSCULOSKELETAL: Denies weakness, joint pain, or bony pain SKIN: No rash, no erythema, no pruritus NEUROLOGIC: See HPI PSYCHIATRIC: No concerning psychosocial issues. 12 point review of systems is negative except for those stated above and HPI Patient History Social History household members: spouse Smoking Status: Former smoker alcohol intake: current Smoking Status: Former smoker alcohol intake frequency: 3 or more drinks per day Exam Initial Vital Signs Initial Vital Signs: Vital Signs Temperature 98.8 F 10/16/21 13:48 Pulse Rate 65 10/16/21 13:48 Respiratory Rate 18 10/16/21 13:48 Blood Pressure 96/51 L 10/16/21 13:48 Pulse Oximetry 98 10/16/21 13:48 Oxygen Delivery Method 10/16/21 13:48 GENERAL: Alert pleasant 70-year-old male seems mildly confused HEENT: Head atraumatic,EOMI, pupils reactive, left-sided facial droop, moist mucous membranes CARDIOVASCULAR: Regular rate and rhythm without murmurs, rubs or gallops. RESPIRATORY: Breath sounds equal bilaterally, no wheezes rales or rhonchi. ABDOMEN: Soft, nontender. Normoactive bowel sounds all 4 quadrants. No guarding or rebound. : No CVA tenderness EXTREMITIES: Normal range of motion, no clubbing or edema. Neurovascularly intact NEUROLOGICAL: Alert and oriented x3.Normal gait and speech. Cranial nerves II through XII grossly intact. Good kwtviv-[id number], good wdvv-[id number], strength equal bilaterally, no dysarthria or aphasia, sensation in tact to soft touch bilaterally, cleared left complete hemianopsia, last facial droop SKIN: Warm, dry, no laceration, no petechiae, no rashes or lesions. Scores NIH Stroke Scale Level of Conciousness: Alert, keenly responsive Ask month/age: Answers both questions correctly. Open/close eyes, close hand: Performs both tasks correctly Best gaze horizontal: Normal Visual arana: Complete hemianopia Facial palsy: Partial paralysis, total or near total paralysis of lower face Left arm drift: No drift for full 10 sec Right arm drift: No drift for full 10 sec Left leg drift: No drift for full 5 sec Right leg drift: No drift for full 5 sec Limb ataxia: Absent Sensory on face/arms/legs: Normal, no sensory loss Best language: No aphasia, normal Dysarthria: Normal Extinction or inattention: No abnormality Total NIH Stroke scale score: 4 Course Orders Ordered: ED Orders 10/16/21 13:[address] angio head and neck Stat Complete Blood Count AUTO DIFF Stat Comprehensive Metabolic Panel Stat Partial Thromboplastin Time Stat Prothrombin Time INR Stat Troponin & CK Cardiac Panel Stat 10/16/21 13:58 EKG-12 Lead Stat 10/16/21 15:21 Urine Drug Screen, Rapid Stat 10/16/21 15:35 Urinalysis and Microscopic Stat 10/16/21 15:37 COVID19 -Nasal RAPID/Pre-Proc Stat 10/16/21 17:18 MR head/brain wo con Stat Clopidogrel Bisulfate (Clopidogrel 75 Mg Tablet) 75 mg PO DAILY JESSICA Sodium Chloride (Normal Saline 0.9%) 1,000 mls @ 150 mls/hr IV CONT JESSICA Last Infusion: 10/16/21 16:48 Dose: 0 mls/hr Documented By: Admin: 10/16/21 15:00 Dose: 150 mls/hr Documented By: MIKE Discontinued Medications Aspirin (Aspirin 81 Mg Chew Tab) 324 mg PO NOW ONE Stop: 10/16/21 16:00 Last Admin: 10/16/21 16:21 Dose: 324 mg Documented By: MIKE Clopidogrel Bisulfate (Clopidogrel 75 Mg Tablet) 300 mg PO NOW ONE Stop: 10/16/21 16:31 Last Admin: 10/16/21 16:39 Dose: 300 mg Documented By: ROSA Vital Signs Vital signs: Vital Signs - 8 hr 10/16/21 13:48 10/16/21 14:30 10/16/21 14:45 Temperature 98.8 F Pulse Rate 65 62 61 Respiratory Rate 18 24 19 Blood Pressure 96/51 L 131/60 Pulse Oximetry 98 97 99 Oxygen Delivery Method Room Air Room Air 10/16/21 15:00 10/16/21 15:15 10/16/21 15:30 Temperature Pulse Rate 59 L 57 L 57 L Respiratory Rate 14 20 20 Blood Pressure 147/68 H 134/65 141/63 H Pulse Oximetry 98 99 99 Oxygen Delivery Method 10/16/21 15:45 10/16/21 15:53 10/16/21 16:00 Temperature Pulse Rate 60 60 60 Respiratory Rate 22 16 21 Blood Pressure 177/81 H Pulse Oximetry 100 100 99 Oxygen Delivery Method MDM - Neuro Symptoms/Deficit Lab Data Result diagrams: 10/16/21 13:56 10/16/21 13:56 Labs: Lab Results 10/16/21 10/16/21 10/16/21 Range/Units 13:56 13:56 13:56 WBC 6.6 (4.5-11.0) X10^3/uL RBC 4.20 L (4.5-5.9) X10^6/uL Hgb 13.1 L (13.5-17.5) g/dL Hct 38.3 L (41-53) % MCV 91.2 (80-100) fL MCH 31.2 (26-34) PG MCHC 34.2 (30-36) % RDW 14.7 (11.6-14.8) % Plt Count 138 L (150-400) X10^3/uL Neut % (Auto) 61.0 (50-75) % Lymph % (Auto) 23.3 L (25-40) % [place] % (Auto) 9.5 (3-14) % Eos % (Auto) 5.0 H (2-4) % Baso % (Auto) 1.2 (0-2) % Neut # (Auto) 4000 (5419-8834) /uL Lymph # (Auto) 1500 (0718-8325) /uL [place] # (Auto) 600 (0-900) /uL Eos # (Auto) 300 (0-450) /uL Baso # (Auto) 100 (0-100) /uL PT 13.3 H (10.1-12.7) SECONDS INR 1.2 (0.9-1.3) APTT 28 (26.4-36.2) SECONDS Sodium 136 L (137-145) mmol/L Potassium 4.4 (3.4-5.1) mmol/L Chloride 103 (98-107) mmol/L Carbon Dioxide 28 (22-32) mmol/L BUN 15 (9-20) mg/dL Creatinine 1.20 (0.66-1.25) mg/dL Estimated GFR > 60 (>60) mL/min BUN/Creatinine Ratio 12.5 (6-22) Glucose 99 (80-110) mg/dL Calcium 8.8 (8.4-10.2) mg/dL Total Bilirubin 0.8 (0.2-1.3) mg/dL AST 23 (17-59) IU/L ALT 13 (<50) IU/L Alkaline Phosphatase 73 (38-126) U/L Total Creatine Kinase 50 L (55-170) U/L CK-MB (CK-2) TNP CK-MB (CK-2) Rel Index TNP Troponin I < 0.012 (0.01-0.034) ng/mL Total Protein 6.8 (6.3-8.2) g/dL Albumin 3.8 (3.5-5.0) g/dL Globulin 3.0 (1.7-4.1) g/dL Albumin/Globulin Ratio 1.3 (1.0-2.8) Urine Color Urine Appearance Urine pH (4.5-8.0) Ur Specific [place] (1.000-1.035) Urine Protein (Negative) Urine Glucose (UA) (Negative) g/dL Urine Ketones (NEGATIVE) Urine Occult Blood (Negative) Urine Nitrate (Negative) Urine Bilirubin (NEGATIVE) Urine Urobilinogen (0.2) E.U./dL Ur Leukocyte Esterase (NEGATIVE) Urine RBC (0-5/HPF) Urine WBC (0-5/HPF) Urine Bacteria (None) Ur Culture Indicated? U Opiates 300ng/mL cut (Negative) Ur Oxycodone Screen (Negative) Urine Methadone Screen (Negative) Ur Barbiturates Screen (Negative) U Tricyclic Antidepress (Negative) Ur Phencyclidine Scrn (Negative) Ur Amphetamines Screen (Negative) U Methamphetamines Scrn (Negative) Ur MDMA Scrn (Ecstasy) (Negative) U Benzodiazepines Scrn (Negative) Urine Cocaine Screen (Negative) U Marijuana (THC) Screen (Negative) SARS-CoV-2 (PCR) (Negative) 10/16/21 10/16/21 10/16/21 Range/Units 15:21 15:35 15:37 WBC (4.5-11.0) X10^3/uL RBC (4.5-5.9) X10^6/uL Hgb (13.5-17.5) g/dL Hct (41-53) % MCV (80-100) fL MCH (26-34) PG MCHC (30-36) % RDW (11.6-14.8) % Plt Count (150-400) X10^3/uL Neut % (Auto) (50-75) % Lymph % (Auto) (25-40) % [place] % (Auto) (3-14) % Eos % (Auto) (2-4) % Baso % (Auto) (0-2) % Neut # (Auto) (4142-9096) /uL Lymph # (Auto) (7224-4560) /uL [place] # (Auto) (0-900) /uL Eos # (Auto) (0-450) /uL Baso # (Auto) (0-100) /uL PT (10.1-12.7) SECONDS INR (0.9-1.3) APTT (26.4-36.2) SECONDS Sodium (137-145) mmol/L Potassium (3.4-5.1) mmol/L Chloride (98-107) mmol/L Carbon Dioxide (22-32) mmol/L BUN (9-20) mg/dL Creatinine (0.66-1.25) mg/dL Estimated GFR (>60) mL/min BUN/Creatinine Ratio (6-22) Glucose (80-110) mg/dL Calcium (8.4-10.2) mg/dL Total Bilirubin (0.2-1.3) mg/dL AST (17-59) IU/L ALT (<50) IU/L Alkaline Phosphatase (38-126) U/L Total Creatine Kinase (55-170) U/L CK-MB (CK-2) CK-MB (CK-2) Rel Index Troponin I (0.01-0.034) ng/mL Total Protein (6.3-8.2) g/dL Albumin (3.5-5.0) g/dL Globulin (1.7-4.1) g/dL Albumin/Globulin Ratio (1.0-2.8) Urine Color Yellow Urine Appearance Clear Urine pH 6.5 (4.5-8.0) Ur Specific [place] <=1.005 (1.000-1.035) Urine Protein Negative (Negative) Urine Glucose (UA) Negative (Negative) g/dL Urine Ketones Negative (NEGATIVE) Urine Occult Blood Negative (Negative) Urine Nitrate Negative (Negative) Urine Bilirubin Negative (NEGATIVE) Urine Urobilinogen 0.2 (0.2) E.U./dL Ur Leukocyte Esterase Negative (NEGATIVE) Urine RBC None seen (0-5/HPF) Urine WBC None seen (0-5/HPF) Urine Bacteria None seen (None) Ur Culture Indicated? Cult not indicated U Opiates 300ng/mL cut Negative (Negative) Ur Oxycodone Screen Negative (Negative) Urine Methadone Screen Negative (Negative) Ur Barbiturates Screen Negative (Negative) U Tricyclic Antidepress Negative (Negative) Ur Phencyclidine Scrn Negative (Negative) Ur Amphetamines Screen Negative (Negative) U Methamphetamines Scrn Negative (Negative) Ur MDMA Scrn (Ecstasy) Negative (Negative) U Benzodiazepines Scrn Negative (Negative) Urine Cocaine Screen Negative (Negative) U Marijuana (THC) Screen Negative (Negative) SARS-CoV-2 (PCR) Negative (Negative) Point of Care Testing Glucose POC [address] scan - head: Radiologist's Impression: CT Scan Report Signed Patient: Brock Sherman MR#: [id number] : 1950 Acct:[id number] Age/Sex: 70 / M Date of Service: 10/16/21 Loc: ED Accession Number: [id number] ?? Procedure: CT Stroke Ordering Provider: Becki Simeon D.O. PROCEDURE:? CT STROKE ? INDICATIONS:? left visual change and severe confusion ? TECHNIQUE:? Noncontrast 4.5 mm thick angled axial sections acquired from the foramen magnum to the vertex, with coronal reformats.? For radiation dose reduction, the following was used:? automated exposure control, adjustment of mA and/or kV according to patient size.? ? COMPARISON:? [facility], MR, STROKE PROTOCOL (PNL), 08/12/2012, 14:40.? [facility], MR, MR STROKE, 02/23/2021, 10:25.? [facility], CT, CT HEAD WITHOUT CONTRAST, 09/09/2021, 13:31. ? FINDINGS:? Image quality:? Excellent.? ? CSF spaces:? Basal cisterns are patent.? No extra-axial fluid collections.? The ventricles are symmetric in size and shape.? ? Brain:? No intracranial bleeds or masses.? There is cerebral volume loss for age, with resultant ventricular and sulcal prominence.? There are periventricular and deep white matter chronic small vessel ischemic changes.? Remote areas of infarction can be seen on the right, particularly involving the anterior superior right frontal lobe.? Potential minimal low-density can be seen involving the right occipital lobe compared left.? There is intracranial internal carotid artery atherosclerosis.? ? Skull and face:? Right posterior fossa craniotomy changes are seen laterally.? Calvarium and visualized facial bones appear intact, without suspicious lesions.? ? Sinuses:? Visualized sinuses and mastoids are clear.? ? ? IMPRESSION:? No acute intracranial hemorrhage is seen.? ? Age remote right-sided infarctions are seen, with the most prominent seen involving the anterior superior right lobe. ? Potential minimal asymmetric low density involving the right occipital lobe, which may simply be artifactual. ? Craniotomy changes are seen involving the posterior fossa on the right laterally. ? Note: Case discussed by telephone with Dr. Simeon at 1:09 p.m. [place] time on October 16, 2021.? ? This study fulfills neurological imaging criteria for inclusion or exclusion of acute stroke therapies based on available published neurological guidelines.? ? ? Dictated by: Karl Ford M.D. on 10/16/2021 at 13:07 ? ? CTA - brain/neck: Radiologist's Impression: Signed Patient: Brock Sherman MR#: [id number] : 1950 Acct:[id number] Age/Sex: 70 / M Date of Service: 10/16/21 Loc: ED Accession Number: [id number] ?? Procedure: CT angio head and neck Ordering Provider: Becki Simeon D.O. PROCEDURE:? CT ANGIO HEAD AND NECK ? INDICATIONS:? left visula change and severe confuison ? TECHNIQUE:? After the administration of intravenous contrast, 1 mm thick sections acquired from the aortic arch through the [place] of [place].? Post-contrast 4.5 mm thick sections then re-acquired from the foramen magnum to the vertex.? 3-dimensional glmdlkc-spnbeiaev-ygiucmkgzv (MIP) and/or volume rendering reformats were acquired of the central intracranial vasculature and neck separately. For radiation dose reduction, the following was used:? automated exposure control, adjustment of mA and/or kV according to patient size.? ? COMPARISON:? [facility], MR, MR STROKE, 02/23/2021, 10:25.? [facility], CT, CT HEAD WITHOUT CONTRAST, 09/09/2021, 13:31. ? FINDINGS:? Image quality:? Excellent.? ? BRAIN:? CSF spaces:? Ventricles are normal in size and shape.? Basal cisterns are patent.? No extra-axial fluid collections.? ? Brain:? No midline shift.? No intracranial bleeds or masses.? Martines-white matter interface appears intact.? There are several areas of volume loss and martines-white matter differentiation loss in the right frontal, right parietal, trace right occipital region superimposed on mild patchy white matter hypodensity.? No abnormal enhancing mass. ? Skull and face:? Postsurgical changes along the right posterior fossa.? No acute fractures or suspicious bone lesions. ? Sinuses:? Sinuses and mastoids are clear.? ? HEAD CT ANGIOGRAPHY:? Anterior circulation:? Intracranial internal carotid arteries are normal in size and flow.? The flow within the paired anterior cerebral arteries is normal and symmetric.? The flow within the middle cerebral arteries is normal and symmetric.? The anterior communicating artery is seen.? No aneurysms are seen.? ? Posterior circulation:? Left vertebral artery is quite diminutive and not completely seen as it enters the foramen magnum.? The right vertebral artery forms the basilar artery.? Flow within the posterior cerebral arteries is normal and symmetric.? No aneurysms are seen.? ? NECK CT ANGIOGRAPHY:? Carotid system:? The great vessels demonstrate a conventional anatomy as they arise from the aortic arch.? The origins of the common carotid arteries appear patent.? The common carotid arteries demonstrate normal caliber and courses.? Calcified focal stenosis of the proximal left internal carotid artery.? The extent is similar compared to prior MRI.? Additionally, there is very short segment focal narrowing estimated to be about 50%.? The internal carotid arteries demonstrate normal calibers and courses.? ? Posterior circulation:? Left vertebral artery is quite diminutive.? The origin appears patent.? There is irregularity in the proximal right vertebral artery lumen, potentially atherosclerotic versus dissection.? The distal right vertebral artery appears normal.? There is multifocal calcification within the intracranial portion. ? Soft tissues:? Visualized neck soft tissues demonstrate no suspicious abnormalities.? ? Bones:? No suspicious bony lesions.? Visualized cervical spine appears normally aligned.? IMPRESSION:? ? 1. No acute intracranial arterial occlusions or aneurysms. ? 2. Intraluminal irregularity at the proximal right vertebral artery in the neck, similar compared to prior MR angiogram.? Atherosclerotic plaque versus short segment dissection. ? 3. Extremely diminutive left vertebral artery, probably congenital. ? 4. 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 ? 5. No acute changes in the brain. ? Any quantitative measurements of stenosis were performed using NASCET criteria.? ? ? Dictated by: Samantha Zepeda M.D. on 10/16/2021 at 14:35 ? ? ECG Data Interpretation: Normal sinus rhythm rate 62 IA interval 192 QRS [address] changes no T-wave inversions MDM Narrative Medical decision making narrative: Patient presents has code stroke he has last known well 115 within range of tPA. He has obvious left complete hemianopsia. Unable to read left side of the NIH stroke cards. 14:15 Dr. Hook was immediately contacted the stroke neurologist. She did evaluate patient via [employer]. She states difficult to tell but hesitant to give tPA. Patient's symptoms also started resolving. She thinks after reviewing MRI from January symptoms are related to an old stroke which got exacerbated by a low-flow and hyper provision stay with chronic stenosis. Recommended monitoring an MRI. Patient appears that he was discharged in January on aspirin 325 mg however patient is not compliant. states that he is not taking aspirin she showed me all of his antihypertensive medications. Patient is not a fall risk. The patient admitted to Dr. Mcdermott MRI pending. Discharge Plan Departure Patient Disposition: Admitted as Observation Clinical Impression: CVA (cerebral vascular accident) Admit Date/Time: 10/16/21 16:00 Admit Provider: Darrick Mcdermott
[2021-10-16 14:07] LABS: Add Manual Diff / Slide Review NO; Basophils Absolute Auto 100 /uL (0-100); Basophils Percent Auto 1.2 % (0-2); Eosinophils Absolute Auto 300 /uL (0-450); Hematocrit 38.3 % (41-53); Hemoglobin 13.1 g/dL (13.5-17.5); Lymphocytes Absolute Auto 1500 /uL (1100-4500); Lymphocytes Percent Auto 23.3 % (25-40); Mean Corpuscular HGB Conc 34.2 % (30-36); Mean Corpuscular Hemoglobin 31.2 PG (26-34); Mean Corpuscular Volume 91.2 fL (80-100); Monocytes Absolute Auto 600 /uL (0-900); Monocytes Percent Auto 9.5 % (3-14); Neutrophils Absolute Auto 4000 /uL (1500-7000); Platelet Count 138 X10^3/uL (150-400); Red Cell Distribution Width 14.7 % (11.6-14.8); White Blood Cell Count 6.6 X10^3/uL (4.5-11.0)
[2021-10-16 14:12] LABS: INR 1.2 (0.9-1.3); Prothrombin Time 13.3 SECONDS (10.1-12.7)
[2021-10-16 14:15] LABS: PTT Partial Thromboplastin Tim 28 SECONDS (26.4-36.2)
[2021-10-16 14:18] LABS: Alanine Aminotransferase 13 IU/L (<50); Albumin 3.8 g/dL (3.5-5.0); Albumin Globulin Ratio 1.3 (1.0-2.8); Alkaline Phosphatase 73 U/L (38-126); Aspartate Aminotransferase 23 IU/L (17-59); BUN Creatinine Ratio 12.5 (6-22); Bilirubin Total 0.8 mg/dL (0.2-1.3); Blood Urea Nitrogen 15 mg/dL (9-20); Calcium 8.8 mg/dL (8.4-10.2); Carbon Dioxide 28 mmol/L (22-32); Chloride 103 mmol/L (98-107); Creatine Kinase 50 U/L (55-170); Estimated Glomerular Filt Rate > 60 mL/min (>60); Glucose 99 mg/dL (80-110); HEMOLYSIS < 15 (0-50); Potassium 4.4 mmol/L (3.4-5.1); Sodium 136 mmol/L (137-145); Total Protein 6.8 g/dL (6.3-8.2)
[2021-10-16 14:28] LABS: Troponin I < 0.012 ng/mL (0.01-0.034)
[2021-10-16] MEDS: SODIUM CHLORIDE 0.9% 1,000 ML 150 ML IV ×2 (15:00→17:39)
[2021-10-16 15:34] LABS: UR Morphine/Opiate cutoff 300 Negative (Negative); Ur Creatinine NEG (Normal); Ur Specific Gravity 1.025 (Normal); Urine Amphetamines Negative (Negative); Urine Barbiturates Negative (Negative); Urine Benzodiazepines Negative (Negative); Urine Cocaine Negative (Negative); Urine MDMA Negative (Negative); Urine Methadone Negative (Negative); Urine Methamphetamines Negative (Negative); Urine Oxycodone Negative (Negative); Urine Phencyclidine Negative (Negative); Urine Tetrahydrocannabinol Negative (Negative); Urine Tricyclic Antidepressant Negative (Negative); Urine pH 5 (Normal)
[2021-10-16 15:43] LABS: Appearance Urine UA CLEAR; Bilirubin Urine UA NEGATIVE (NEGATIVE); Color Urine UA YELLOW; Glucose Urine UA NEGATIVE (Negative); Ketones Urine UA NEGATIVE (NEGATIVE); Leukocyte Esterase Urine UA NEGATIVE (NEGATIVE); Nitrite Urine UA NEGATIVE (Negative); Occult Blood Urine UA NEGATIVE (Negative); Protein Urine UA NEGATIVE (Negative); Specific Gravity Urine UA <=1.005 (1.000-1.035); Urobilinogen Urine UA 0.2 E.U./dL (0.2); pH Urine UA 6.5 (4.5-8.0)
[2021-10-16 15:49] LABS: Bacteria Urine None Seen; Culture Indicated Urine Cult Not Indicated; RBC Urine None Seen (0-5/HPF); WBC Urine None Seen (0-5/HPF)
[2021-10-16 16:02] LABS: COVID19 -Nasal RAPID Negative (Negative)
--- NOTE | 2021-10-16 16:06 | CM.MNRNOTE ---
R-upper arm BP 144/68, L-upper arm BP 166/66
[2021-10-16] MEDS: ASPIRIN 81 MG CHEW TAB 324 MG PO (16:21)
--- NOTE | 2021-10-16 16:37 | PM.HP.1 ---
History of Present Illness History of Present Illness Date Patient Seen: 10/16/21 Time Patient Seen: 18:00 Chief complaint: Possible Stroke Narrative: Brock Sherman is a 70 year old male with past medical history of CVA x3 with chronic left-sided deficits, HTN, HLD, PAD, right carotid endarterectomy, vascular dementia, trigeminal neuralgia, and obesity who present with bilateral acute visual changes. Patient states around noon on 10/16 he was making lunch and suddenly saw little in his vision bilaterally. No new facial droop, aphasia or weakness in extremities. These symptoms persisted so he came to the ED. His symptoms resolved in the ED so tPA not given. NIH was 4. His head CT and head CTA were negative for LVO or bleed. MRI brain came back negative for new stroke, but showed chronic infarcts. Patient asking if he can go home. He denies any pain, weakness, numbness, dysarthria, headache or speech difficulty. Says his vision is currently normal. Patient History Medical History (Updated 10/16/21 @ 19:58 by Darrick Mcdermott DO) CVA (cerebral vascular accident) Comment: As above Family & Social History Family History (Updated 10/16/21 @ 19:59 by Darrick Mcdermott DO) Father Heart disease Social History: household members spouse Safety & Behavioral: Feels Safe in Current Yes Environment Tobacco & Substance use: Smoking Status Former smoker alcohol intake current alcohol intake frequency 3 or more drinks per day Meds Home Medications and Allergies Home Medications Medication Instructions Recorded Confirmed Type aspirin 325 mg tablet 325 mg PO DAILY #30 tabs 02/23/21 10/16/21 Rx atorvastatin 20 mg tablet (Lipitor) 80 mg PO BEDTIME #30 tabs 02/23/21 10/16/21 Rx metoprolol tartrate 50 mg tablet 50 mg PO BID #30 tabs 02/23/21 10/16/21 Rx Allergies Allergy/AdvReac Type Severity Reaction Status Date / Time No Known Drug Allergies Allergy Verified 10/16/21 14:04 Review of Systems Review of Systems Narrative: All other systems reviewed with the patient and are negative unless otherwise stated. All other systems reviewed with the patient and are negative unless otherwise stated. Exam Vital Signs (past 8 hours): - 10/16/21 13:48 10/16/21 14:30 10/16/21 14:45 Temperature 98.8 F Pulse Rate 65 62 61 Respiratory Rate 18 24 19 Blood Pressure 96/51 L 131/60 Pulse Oximetry 98 97 99 Oxygen Delivery Method Room Air Room Air 10/16/21 15:00 10/16/21 15:15 10/16/21 15:30 Temperature Pulse Rate 59 L 57 L 57 L Respiratory Rate 14 20 20 Blood Pressure 147/68 H 134/65 141/63 H Pulse Oximetry 98 99 99 Oxygen Delivery Method 10/16/21 15:45 10/16/21 15:53 10/16/21 16:00 Temperature Pulse Rate 60 60 60 Respiratory Rate 22 16 21 Blood Pressure 177/81 H Pulse Oximetry 100 100 99 Oxygen Delivery Method 10/16/21 16:02 10/16/21 16:02 10/16/21 16:05 Temperature Pulse Rate 58 L 57 L Respiratory Rate 12 20 Blood Pressure 161/66 H Pulse Oximetry 100 98 Oxygen Delivery Method 10/16/21 16:05 10/16/21 16:15 10/16/21 16:15 Temperature Pulse Rate 58 L Respiratory Rate 22 Blood Pressure 144/68 H 142/69 H Pulse Oximetry 98 Oxygen Delivery Method 10/16/21 16:30 Temperature Pulse Rate 70 Respiratory Rate 24 Blood Pressure Pulse Oximetry Oxygen Delivery Method Oxygen Delivery Method Room Air Narrative Exam Narrative: GEN: no acute distress, AOx2, diaphoretic HEENT: moist mucous membranes, PERRL. NECK: trachea midline, no JVD CV: regular rate and rhythm, no murmurs PULM: clear bilaterally ABD: soft, nontender, nondistended, no organomegaly EXT: warm and well perfused with no edema NEURO: awake, alert, oriented, no focal deficits. Strength intact diffusely. No cranial nerve deficits. Mild left sided facial droop. Vision intact in 4 quadrants. Objective Labs Result Diagrams: 10/16/21 13:56 10/16/21 13:56 Labs: Laboratory Results - last 24 hr 10/16/21 10/16/21 10/16/21 13:56 13:56 13:56 WBC 6.6 RBC 4.20 L Hgb 13.1 L Hct 38.3 L MCV 91.2 MCH 31.2 MCHC 34.2 RDW 14.7 Plt Count 138 L Neut % (Auto) 61.0 Lymph % (Auto) 23.3 L [place] % (Auto) 9.5 Eos % (Auto) 5.0 H Baso % (Auto) 1.2 Neut # (Auto) 4000 Lymph # (Auto) 1500 [place] # (Auto) 600 Eos # (Auto) 300 Baso # (Auto) 100 PT 13.3 H INR 1.2 APTT 28 Sodium 136 L Potassium 4.4 Chloride 103 Carbon Dioxide 28 BUN 15 Creatinine 1.20 Estimated GFR > 60 BUN/Creatinine Ratio 12.5 Glucose 99 Calcium 8.8 Total Bilirubin 0.8 AST 23 ALT 13 Alkaline Phosphatase 73 Total Creatine Kinase 50 L CK-MB (CK-2) TNP CK-MB (CK-2) Rel Index TNP Troponin I < 0.012 Total Protein 6.8 Albumin 3.8 Globulin 3.0 Albumin/Globulin Ratio 1.3 Urine Color Urine Appearance Urine pH Ur Specific [place] Urine Protein Urine Glucose (UA) Urine Ketones Urine Occult Blood Urine Nitrate Urine Bilirubin Urine Urobilinogen Ur Leukocyte Esterase Urine RBC Urine WBC Urine Bacteria Ur Culture Indicated? U Opiates 300ng/mL cut Ur Oxycodone Screen Urine Methadone Screen Ur Barbiturates Screen U Tricyclic Antidepress Ur Phencyclidine Scrn Ur Amphetamines Screen U Methamphetamines Scrn Ur MDMA Scrn (Ecstasy) U Benzodiazepines Scrn Urine Cocaine Screen U Marijuana (THC) Screen SARS-CoV-2 (PCR) 10/16/21 10/16/21 10/16/21 15:21 15:35 15:37 WBC RBC Hgb Hct MCV MCH MCHC RDW Plt Count Neut % (Auto) Lymph % (Auto) [place] % (Auto) Eos % (Auto) Baso % (Auto) Neut # (Auto) Lymph # (Auto) [place] # (Auto) Eos # (Auto) Baso # (Auto) PT INR APTT Sodium Potassium Chloride Carbon Dioxide BUN Creatinine Estimated GFR BUN/Creatinine Ratio Glucose Calcium Total Bilirubin AST ALT Alkaline Phosphatase Total Creatine Kinase CK-MB (CK-2) CK-MB (CK-2) Rel Index Troponin I Total Protein Albumin Globulin Albumin/Globulin Ratio Urine Color Yellow Urine Appearance Clear Urine pH 6.5 Ur Specific [place] <=1.005 Urine Protein Negative Urine Glucose (UA) Negative Urine Ketones Negative Urine Occult Blood Negative Urine Nitrate Negative Urine Bilirubin Negative Urine Urobilinogen 0.2 Ur Leukocyte Esterase Negative Urine RBC None seen Urine WBC None seen Urine Bacteria None seen Ur Culture Indicated? Cult not indicated U Opiates 300ng/mL cut Negative Ur Oxycodone Screen Negative Urine Methadone Screen Negative Ur Barbiturates Screen Negative U Tricyclic Antidepress Negative Ur Phencyclidine Scrn Negative Ur Amphetamines Screen Negative U Methamphetamines Scrn Negative Ur MDMA Scrn (Ecstasy) Negative U Benzodiazepines Scrn Negative Urine Cocaine Screen Negative U Marijuana (THC) Screen Negative SARS-CoV-2 (PCR) Negative Assessment & Plan Assessment & Plan narrative: # acute blurry vision due to possible TIA -patient with son in onset visual changes which she described as a little hazy it lasted over an hour -etiology could represent TIA or amaurosis fuigax -NIH score of 4 in ED -CT noncontrast head and CTA head or acute stroke -MRI brain shows chronic infarcts but no acute stroke -aspirin and Plavix loaded, will continue baby aspirin and Plavix 75 mg daily -continue patient's Lipitor 80 mg nightly -obtain echo, last in January 2021 with normal EF then hypokinesis of anterolateral wall -telemetry # prior strokes and peripheral artery disease -patient is a vasculopath with multiple strokes and carotid artery stenosis -continue anti-platelet therapy and statin -CTA neck with intra luminal irregularity which was present on previous scans, could represent dissection but appears chronic. No significant change in stenosis of carotids. -mitigate risk factors # hypertension, chronic -hold home metoprolol to allow permissive hypertension # hyperlipidemia, chronic -continue statin # vascular dementia -patient appears at baseline # obesity -BMI 33 -encourage weight loss Code status is DNR. COVID negative. DVT prophylaxis with SCDs. Hold anti coag. Proxy is Eddie. I have reviewed home meds and used all available resources to reconcile the home meds. Time Spent With Patient Critical Care time: I spent a total of [] minutes of critical care time on this patient's care today; this time is exclusive of procedural time.
[2021-10-16] MEDS: CLOPIDOGREL 75 MG TABLET 300 MG PO (16:39)
--- NOTE | 2021-10-16 17:18 | DI.MRI.S_ITS ---
PROCEDURE: MR HEAD/BRAIN WO CON INDICATIONS: hx stroke new onset confusion TECHNIQUE: Non-contrast axial T1 spin echo, axial T2 fast spin echo, sagittal and axial FLAIR, coronal T2 fast spin echo, axial gradient echo, axial diffusion and ADC through the brain. COMPARISON: [facility], MR, MR STROKE, 02/23/2021, 10:25. [facility], CT, CT ANGIO HEAD AND NECK, 10/16/2021, 14:00. [facility], CT, CT STROKE, 10/16/2021, 14:00. FINDINGS: Image quality: Excellent. CSF spaces: The ventricles appear stable, with mild ex vacuo dilatation seen involving the right lateral ventricle. Basal cisterns are patent. No extra-axial fluid collections. Brain: No intracranial mass effects. There is cerebral volume loss for age. There are periventricular and deep white matter chronic small vessel ischemic changes. Brainstem appears normal. Diffusion-weighted images show no acute ischemic insults. Areas of remote infarction are again seen on the right, which are worst involving the right anterior frontal lobe. Mild hemosiderin deposition can be seen involving the areas of infarction, which is consistent with prior petechial hemorrhage. Normal intravascular flow voids are present. Skull and face: Calvarial bone marrow is normal in signal. Orbits are normal. Note is made of bilateral lens replacements. Sinuses: Sinuses and mastoids are clear. IMPRESSION: No focal diffusion abnormality is seen to suggest an acute or subacute infarction. Areas of remote infarction are seen, which are worst involving the anterior right frontal lobe. Dictated by: Karl Ford M.D. on 10/16/2021 at 16:27 Approved by: Karl Ford M.D. on 10/16/2021 at 16:29
--- NOTE | 2021-10-16 18:36 | DI.ECHO.S_ITS ---
[facility] +---------+ : : [address] [place] [address] : : : : [id number] : : : : Phone: [phone]+ Echocardiogram Report + + :Name: CHA GUZMAN Study Date: 10/17/2021 Height: 72 in : :[facility] ReadingLocation: Weight: 248 lb : : Gender: Male BSA: 2.3 m2 : :: 1950 Age: 70 yrs BP: 153/62 mmHg: :Reason For Study: STROKE WORKUP : :Ordering Physician: JORGE L, : :ANILA Herr D.O Performed By: Erin Wang : :Referring: ANILA COATS D.O : + + Interpretation Summary Mild concentric left ventricular hypertrophy with ejection fraction 55-60%. Mid inferior wall mild hypokinesis. Mildly dilated left atrium. Mild aortic valve sclerosis. Mild mitral annular calcification. Mildly enlarged ascending aorta. Injection of contrast with valsalva documented an interatrial shunt. Comparison is made with the echocardiogram of 02/23/2021, there has been no significant change. Procedure: A two-dimensional transthoracic echocardiogram with color flow and Doppler was performed. The study quality was technically adequate. A saline contrast injection was performed to assess for cardiac shunting. Comparison is made with the echocardiogram of 02/23/2021. The patient was in sinus rhythm with heart rates between 61-66 bpm during the exam. Left Ventricle: The left ventricle is normal in size. There is mild concentric left ventricular hypertrophy. The ejection fraction is estimated to be 55-60%. There is mid inferior wall mild hypokinesis. There are no other obvious focal wall motion abnormalities. Right Ventricle: The right ventricle is at the upper limits of normal in size. The right ventricular systolic function is normal. Atria: The left atrium is mildly dilated. Right atrial size is normal. Injection of contrast with valsalva documented an interatrial shunt. Mitral Valve: There is mild mitral annular calcification. The mitral valve leaflets are slightly calcified. There is trace mitral regurgitation. Aortic Valve: The aortic valve is trileaflet. The aortic valve opens well. There is mild aortic valve sclerosis. There is no aortic valve stenosis. No aortic regurgitation is present. Tricuspid Valve: The tricuspid valve is normal in structure and function. There is a trace or physiologic amount of tricuspid regurgitation. Pulmonic Valve: The pulmonic valve is not well visualized. There is no pulmonic valvular regurgitation. Great Vessels: The aortic root is normal size. The ascending aorta is mildly enlarged. The IVC is of normal diameter and collapses greater than 50% with a sniff. This suggests a low right atrial pressure of 3 mm Hg. Pericardium/ Pleura There is no pericardial effusion. There is no pleural effusion. MMode/2D Measurements & Calculations LVIDd: 5.1 cm LVOT diam: 2.5 cm LVIDs: 4.0 cm Ao root diam: 3.8 cm FS: 22.5 % asc Aorta Diam: 4.0 cm EPSS: 0.32 cm Ao Arch Diam (Prox Trans): 2.4 cm IVSd: 1.1 cm LVPWd: 1.3 cm LV [place]. diameter/BSA (cm/m^2): 2.2 LV sys. diameter/BSA (cm/m^2): 1.7 LA A2 area: 27.7 cm2 RA long axis: 5.3 cm LA A4 area: 21.8 cm2 RA area: 17.9 cm2 LA length (vol): 5.3 cm RA vol: 51.1 ml LA vol: 96.9 ml RA : 21.9 ml/m2 LA vol index: 41.5 ml/m2 IVC diam: 0.91 cm RVD1 (basal): 4.5 cm RVD2 (mid): 3.5 cm TAPSE: 2.3 cm Doppler Measurements & Calculations Ao V2 max: 152.0 cm/sec LVOT Max Bhupendra: 97.2 cm/sec Ao V2 mean: 107.8 cm/sec LV V1 max P.8 mmHg Ao max P.2 mmHg LV V1 VTI: 26.5 cm Ao mean P.1 mmHg LEXIE(I,D): 3.4 cm2 Ao V2 VTI: 38.8 cm LEXIE(V,D): 3.1 cm2 sev ratio: 0.68 LEXIE indexed to BSA (cm^2/m^2): 1.4 MV E max bhupendra: 89.6 cm/sec PA V2 max: 87.3 cm/sec MV A max bhupendra: 104.9 cm/sec PA V2 mean: 57.9 cm/sec MV E/A: 0.85 PA mean P.5 mmHg Med Peak E' Bhupendra: 5.4 cm/sec PA Accel Time: 0.13 sec E/E' med: 16.5 Lat Peak E' Bhupendra: 6.8 cm/sec E/E' lat: 13.2 E/e' average: 14.9 MV dec time: 0.23 sec SV(LVOT): 129.9 ml Electronically signed by: Brenda Woods on Reading Physician:10/17/2021 10:47 AM
[2021-10-16] MEDS: ATORVASTATIN 20 MG TABLET 80 MG PO (20:23)
[2021-10-17] VITALS: BP 140/68; PULSE 65; RESP 14; TEMP 36.4; O2SAT 99
[2021-10-17] MEDS: SODIUM CHLORIDE 0.9% 1,000 ML 150 ML IV ×2 (00:25→06:46)
[2021-10-17 04:00] VITALS: BP 117/61; PULSE 65; RESP 16; TEMP 36.1; O2SAT 97
[2021-10-17] MEDS: ACETAMINOPHEN 325 MG TABLET 650 MG PO (05:12)
[2021-10-17 06:14] LABS: Add Manual Diff / Slide Review NO; Basophils Absolute Auto 100 /uL (0-100); Eosinophils Absolute Auto 400 /uL (0-450); Eosinophils Percent Auto 7.1 % (2-4); Hematocrit 39.3 % (41-53); Hemoglobin 13.1 g/dL (13.5-17.5); Lymphocytes Absolute Auto 800 /uL (1100-4500); Lymphocytes Percent Auto 15.1 % (25-40); Mean Corpuscular HGB Conc 33.3 % (30-36); Mean Corpuscular Hemoglobin 30.8 PG (26-34); Mean Corpuscular Volume 92.6 fL (80-100); Monocytes Absolute Auto 800 /uL (0-900); Monocytes Percent Auto 14.5 % (3-14); Neutrophils Absolute Auto 3300 /uL (1500-7000); Neutrophils Percent Auto 62.3 % (50-75); Platelet Count 117 X10^3/uL (150-400); Red Blood Cell Count 4.25 X10^6/uL (4.5-5.9); Red Cell Distribution Width 14.4 % (11.6-14.8); White Blood Cell Count 5.2 X10^3/uL (4.5-11.0)
[2021-10-17 06:23] LABS: Blood Urea Nitrogen 15 mg/dL (9-20); Calcium 8.3 mg/dL (8.4-10.2); Carbon Dioxide 28 mmol/L (22-32); Chloride 107 mmol/L (98-107); Estimated Glomerular Filt Rate > 60 mL/min (>60); Glucose 96 mg/dL (80-110); HEMOLYSIS < 15 (0-50); Potassium 3.9 mmol/L (3.4-5.1); Sodium 138 mmol/L (137-145)
--- NOTE | 2021-10-17 08:23 | PM.DS.1 ---
History of Present Illness History of Present Illness Date Patient Seen: 10/17/21 Time Patient Seen: 18:00 Chief complaint: Possible Stroke Narrative: Per Dr. Mcdermott, Brock Sherman is a 70 year old male with past medical history of CVA x3 with chronic left-sided deficits, HTN, HLD, PAD, right carotid endarterectomy, vascular dementia, trigeminal neuralgia, and obesity who present with bilateral acute visual changes. Patient states around noon on 10/16 he was making lunch and suddenly saw little in his vision bilaterally. No new facial droop, aphasia or weakness in extremities. These symptoms persisted so he came to the ED. His symptoms resolved in the ED so tPA not given. NIH was 4. His head CT and head CTA were negative for LVO or bleed. MRI brain came back negative for new stroke, but showed chronic infarcts. Patient asking if he can go home. He denies any pain, weakness, numbness, dysarthria, headache or speech difficulty. Says his vision is currently normal. Discharge Providers Provider Date of admission: 10/16/21 16:00 Discharge Date: 10/17/21 Primary care physician: Waldo Whitmore MD Discharge provider: Dandy Houser DO Summary Hospital Course Discharge Diagnosis: # amaurosis fugax # hx of CVA and peripheral artery disease # hypertension, chronic # hyperlipidemia, chronic # vascular dementia # obesity Hospital Course: This is a 70-year-old male with a history of prior strokes, peripheral artery disease, hypertension, hyperlipidemia, and obesity who presented with about an hour of sudden loss of vision. He described seeing little, but nothing else for about an hour before symptoms resolved. His MRI was negative for an acute marked, but his symptoms are likely secondary to an episode of amaurosis fugax. He was continued on aspirin therapy and given a Plavix load as well. He had no recurrence of symptoms over the hospital stay. His telemetry was unremarkable as was an echocardiogram showed no changes compared to prior studies and a normal ejection fraction. He will continue clopidogrel an additional 20 days for future stroke prevention. No other medication changes are recommended at this time. Exam Vital Signs (past 8 hours): - 10/17/21 04:00 Temperature 97.0 F L Pulse Rate 65 Respiratory Rate 16 Blood Pressure 117/61 Pulse Oximetry 97 Oxygen Flow Rate 0 Oxygen Delivery Method Room Air Oxygen Flow Rate 0 Narrative Exam Narrative: GEN: no acute distress, AOx2, diaphoretic HEENT: moist mucous membranes, PERRL. NECK: trachea midline, no JVD CV: regular rate and rhythm, no murmurs PULM: clear bilaterally ABD: soft, nontender, nondistended, no organomegaly EXT: warm and well perfused with no edema NEURO: awake, alert, oriented, no focal deficits. Strength intact diffusely. No cranial nerve deficits. Mild left sided facial droop. Vision intact in 4 quadrants. Objective Labs Result Diagrams: 10/17/21 05:51 10/17/21 05:51 Labs: Laboratory Results - last 24 hr 10/16/21 10/16/21 10/16/21 13:56 13:56 13:56 WBC 6.6 RBC 4.20 L Hgb 13.1 L Hct 38.3 L MCV 91.2 MCH 31.2 MCHC 34.2 RDW 14.7 Plt Count 138 L Neut % (Auto) 61.0 Lymph % (Auto) 23.3 L [place] % (Auto) 9.5 Eos % (Auto) 5.0 H Baso % (Auto) 1.2 Neut # (Auto) 4000 Lymph # (Auto) 1500 [place] # (Auto) 600 Eos # (Auto) 300 Baso # (Auto) 100 PT 13.3 H INR 1.2 APTT 28 Sodium 136 L Potassium 4.4 Chloride 103 Carbon Dioxide 28 BUN 15 Creatinine 1.20 Estimated GFR > 60 BUN/Creatinine Ratio 12.5 Glucose 99 Calcium 8.8 Magnesium Total Bilirubin 0.8 AST 23 ALT 13 Alkaline Phosphatase 73 Total Creatine Kinase 50 L CK-MB (CK-2) TNP CK-MB (CK-2) Rel Index TNP Troponin I < 0.012 Total Protein 6.8 Albumin 3.8 Globulin 3.0 Albumin/Globulin Ratio 1.3 Urine Color Urine Appearance Urine pH Ur Specific [place] Urine Protein Urine Glucose (UA) Urine Ketones Urine Occult Blood Urine Nitrate Urine Bilirubin Urine Urobilinogen Ur Leukocyte Esterase Urine RBC Urine WBC Urine Bacteria Ur Culture Indicated? U Opiates 300ng/mL cut Ur Oxycodone Screen Urine Methadone Screen Ur Barbiturates Screen U Tricyclic Antidepress Ur Phencyclidine Scrn Ur Amphetamines Screen U Methamphetamines Scrn Ur MDMA Scrn (Ecstasy) U Benzodiazepines Scrn Urine Cocaine Screen U Marijuana (THC) Screen SARS-CoV-2 (PCR) 10/16/21 10/16/21 10/16/21 15:21 15:35 15:37 WBC RBC Hgb Hct MCV MCH MCHC RDW Plt Count Neut % (Auto) Lymph % (Auto) [place] % (Auto) Eos % (Auto) Baso % (Auto) Neut # (Auto) Lymph # (Auto) [place] # (Auto) Eos # (Auto) Baso # (Auto) PT INR APTT Sodium Potassium Chloride Carbon Dioxide BUN Creatinine Estimated GFR BUN/Creatinine Ratio Glucose Calcium Magnesium Total Bilirubin AST ALT Alkaline Phosphatase Total Creatine Kinase CK-MB (CK-2) CK-MB (CK-2) Rel Index Troponin I Total Protein Albumin Globulin Albumin/Globulin Ratio Urine Color Yellow Urine Appearance Clear Urine pH 6.5 Ur Specific [place] <=1.005 Urine Protein Negative Urine Glucose (UA) Negative Urine Ketones Negative Urine Occult Blood Negative Urine Nitrate Negative Urine Bilirubin Negative Urine Urobilinogen 0.2 Ur Leukocyte Esterase Negative Urine RBC None seen Urine WBC None seen Urine Bacteria None seen Ur Culture Indicated? Cult not indicated U Opiates 300ng/mL cut Negative Ur Oxycodone Screen Negative Urine Methadone Screen Negative Ur Barbiturates Screen Negative U Tricyclic Antidepress Negative Ur Phencyclidine Scrn Negative Ur Amphetamines Screen Negative U Methamphetamines Scrn Negative Ur MDMA Scrn (Ecstasy) Negative U Benzodiazepines Scrn Negative Urine Cocaine Screen Negative U Marijuana (THC) Screen Negative SARS-CoV-2 (PCR) Negative 10/17/21 10/17/21 10/17/21 05:51 05:51 05:51 WBC 5.2 RBC 4.25 L Hgb 13.1 L Hct 39.3 L MCV 92.6 MCH 30.8 MCHC 33.3 RDW 14.4 Plt Count 117 L Neut % (Auto) 62.3 Lymph % (Auto) 15.1 L [place] % (Auto) 14.5 H Eos % (Auto) 7.1 H Baso % (Auto) 1.0 Neut # (Auto) 3300 Lymph # (Auto) 800 L [place] # (Auto) 800 Eos # (Auto) 400 Baso # (Auto) 100 PT INR APTT Sodium 138 Potassium 3.9 Chloride 107 Carbon Dioxide 28 BUN 15 Creatinine 1.07 Estimated GFR > 60 BUN/Creatinine Ratio 14.0 Glucose 96 Calcium 8.3 L Magnesium 2.0 Total Bilirubin AST ALT Alkaline Phosphatase Total Creatine Kinase CK-MB (CK-2) CK-MB (CK-2) Rel Index Troponin I Total Protein Albumin Globulin Albumin/Globulin Ratio Urine Color Urine Appearance Urine pH Ur Specific [place] Urine Protein Urine Glucose (UA) Urine Ketones Urine Occult Blood Urine Nitrate Urine Bilirubin Urine Urobilinogen Ur Leukocyte Esterase Urine RBC Urine WBC Urine Bacteria Ur Culture Indicated? U Opiates 300ng/mL cut Ur Oxycodone Screen Urine Methadone Screen Ur Barbiturates Screen U Tricyclic Antidepress Ur Phencyclidine Scrn Ur Amphetamines Screen U Methamphetamines Scrn Ur MDMA Scrn (Ecstasy) U Benzodiazepines Scrn Urine Cocaine Screen U Marijuana (THC) Screen SARS-CoV-2 (PCR) [facility] Medical History (Updated 10/16/21 @ 19:58 by Darrick Mcdermott DO) CVA (cerebral vascular accident) Family History (Updated 10/16/21 @ 19:59 by Darrick Mcdermott DO) Father Heart disease Social History household members: spouse Smoking Status: Former smoker alcohol intake: current Discharge Plan Discharge Plan Patient Disposition: Home Provider Discharge Comment: You were admitted to the hospital for symptoms of a stroke which resolved. You should take an additional medication for 20 more days to reduce your risk of recurrence in the next few months. Discharge orders & Medications Prescriptions: New clopidogrel 75 mg Tablet 75 mg PO DAILY 20 Days Qty: 20 0RF Continued atorvastatin [Lipitor] 20 mg Tablet 80 mg PO BEDTIME Qty: 30 0RF metoprolol tartrate 50 mg Tablet 50 mg PO BID Qty: 30 0RF aspirin 325 mg tablet 325 mg PO DAILY Qty: 30 0RF Follow up/Referrals: Waldo Whitmore MD [Primary Care Provider] - (*Appt on October 25, 2021 at 12pm with [phone]) Diet/Activity/Treatments Diet: Diet as Tolerated and Low-sodium Activity: As tolerated Visit Report/Discharge Packet Instructions: DI for Transient Ischemic Attack Discharge Data Primary Care Provider: Waldo Whitmore Attending Provider: Darrick Mcdermott
[2021-10-17] MEDS: CLOPIDOGREL 75 MG TABLET PO (08:24)
[2021-10-17 09:00] VITALS: BP 146/69; PULSE 67; RESP 19; TEMP 36.8; O2SAT 100
--- NOTE | 2021-10-17 11:44 | PC.NURSE ---
Discharge Note Patient A&O, VSS, RA, no complaints of pain/discomfort. Discharge instructions reviewed with patient, all questions/concerns addressed. TELE/PIV discontinued. Patient able to dress self and pack all belongings. Patient taken down via wheelchair to POV.
== END 2021-10-17 11:40 | disposition home or self-care (01) ==
LOC: ED 15:32 → AC 16:01
PROVIDERS: Admitting Provider Student in an Organized Health Care Education/Training Program; Emergency Provider Emergency Medicine; PCP Family Medicine; Referring Provider Emergency Medicine; Visit Provider Student in an Organized Health Care Education/Training Program
DX: R41.82 Altered mental status, unspecified (principal); R29.704 NIHSS score 4; G50.0 Trigeminal neuralgia; I69.392 Facial weakness following cerebral infarction; F01.50 Vascular dementia, unspecified severity, without behavioral disturbance, psychotic disturbance, mood disturbance, and anxiety; I69.398 Other sequelae of cerebral infarction; H53.9 Unspecified visual disturbance; E66.9 Obesity, unspecified; I10 Essential (primary) hypertension; I73.9 Peripheral vascular disease, unspecified; E78.5 Hyperlipidemia, unspecified; Z68.33 Body mass index [BMI] 33.0-33.9, adult; Z20.822 Contact with and (suspected) exposure to COVID-19
CPT/HCPCS: 36415; 70450; 70496; 70498; 70551; 80048; 80053; 80305; 81001; 82550; 82962; 83735; 84484; 85025; 85610; 85730; 87635; 93005; 93306; 96360; 96361; 99285; C9803; G0378; Q9967